=== PATIENT | female | born 1990 | race Caucasian/White ===

== ENCOUNTER 2017-11-19 22:04 | Emergency (ER) | payer OTHER ==
[~2017-11-19] VITALS: Ht 154.9 cm; Wt 88.8 kg
[~2017-11-19 22:04] MED LIST: BUSP5TAB2 PO; CYCL10TA50; DESO1TAB14; HYDR-3245; IBUP200T49 PO
[2017-11-19 22:24] VITALS: BP 128/82
[2017-11-19] MEDS ORDERED: PREN-3 PO (22:50)
== END 2017-11-19 23:27 | disposition home or self-care (01) ==
LOC: ED 22:53
DX: H92.03 Otalgia, bilateral (principal); H69.90 Unspecified Eustachian tube disorder, unspecified ear
CPT/HCPCS: 99281

== ENCOUNTER 2018-07-11 21:30 | Emergency (ER) | payer OTHER ==
[~2018-07-11] VITALS: Ht 154.9 cm; Wt 84.0 kg
[~2018-07-11 21:30] MED LIST changes: +PREN-3 PO
[2018-07-11] MEDS ORDERED: OXYcodone/APAP 5/325MG TABLET PO ONE (23:00)
[2018-07-11] MEDS ORDERED: KETOROLAC 30 MG/1 ML IM ONE (23:00)
[2018-07-11] MEDS ORDERED: OXYcodone/APAP 5/325MG TABLET ONE (23:01)
[2018-07-11] MEDS ORDERED: KETOROLAC 30 MG/1 ML ONE (23:01)
[2018-07-11 23:35] VITALS: BP 116/73
== END 2018-07-11 23:37 | disposition home or self-care (01) ==
LOC: ED 23:17
DX: S29.012A Strain of muscle and tendon of back wall of thorax, initial encounter (principal); Z88.2 Allergy status to sulfonamides; X58.XXXA Exposure to other specified factors, initial encounter; Y93.89 Activity, other specified; Y92.89 Other specified places as the place of occurrence of the external cause; Y99.8 Other external cause status
CPT/HCPCS: 72072; 96372; 99284; J1885